=== PATIENT | female | born 1985 | race Asian ===

== ENCOUNTER 2017-11-14 15:40 | Inpatient (IN) | payer OTHER, SELFPAY ==
[~2017-11-14] VITALS: Ht 166 cm; Wt 73.9 kg
[~2017-11-14 15:40] MED LIST: LIDOCAINE HCL/PF 1% 10 ML AMPUL INJ ONE; LIDOCAINE PF 2%, 200 MG/10 ML AMPUL.LUER (EPIDURAL) INJ ONE
[2017-11-14] MEDS ORDERED: LR 1,000 ML IV ONE (16:33)
[2017-11-14] MEDS ORDERED: OXYTOCIN/0.9 % SODIUM CHLORIDE 1,000 ML IV SCH (16:33)
[2017-11-14] MEDS ORDERED: TERBUTALINE SULFATE 1 MG/ML VIAL SUBCUT ONE (16:45)
[2017-11-14 16:52] LABS: BASOPHILS # (AUTO) 0.1 K/uL (0.0-0.2); BASOPHILS % (AUTO) 0.8 % (0.0-2.0); EOSINOPHILS # (AUTO) 0.1 K/uL (0.0-0.4); HEMATOCRIT 40.8 % (36-48); HEMOGLOBIN 13.5 g/dL (12.0-16.0); LYMPHOCYTES # (AUTO) 1.4 K/uL (1.0-5.5); LYMPHOCYTES % (AUTO) 19.2 % (20.5-51.5); MEAN CORPUSCULAR HEMOGLOBIN 31 pg (27-31); MEAN CORPUSCULAR HGB CONC 33 % (32-36); MEAN CORPUSCULAR VOLUME 94 fL (79.0-98.0); MONOCYTES # (AUTO) 0.4 K/uL (0.0-1.0); MONOCYTES % (AUTO) 5.2 % (1.7-9.3); NEUTROPHILS # (AUTO) 5.3 K/uL (1.8-7.7); NEUTROPHILS % (AUTO) 73.8 % (40.0-70.0); PLATELET COUNT (AUTO) 138 K/uL (130-430); RED BLOOD CELL COUNT(AUTO) 4.36 MIL/uL (4.2-6.2); RED CELL DISTRIBUTION WIDTH 20.1 % (9.0-15.0); WHITE BLOOD COUNT (AUTO) 7.3 K/uL (4.8-10.8)
[2017-11-14] MEDS ORDERED: FENT2mCg/mL-ROPIVA0.2%/NS EPID 150 ML EP SCH (17:52)
[2017-11-14] MEDS ORDERED: fentaNYL CITRATE/PF 100 MCG/2 ML AMP ONE ×2 (17:52→22:39)
[2017-11-14] MEDS ORDERED: NALBUPHINE HCL 10 MG/ML AMP ONE (18:33)
[2017-11-14] MEDS ORDERED: NALBUPHINE HCL 10 MG/ML AMP IVP ONE (18:33)
[2017-11-14] MEDS: LR 1,000 ML IV SCH (18:35)
[2017-11-14 19:43] VITALS: BP_SYST 122
[2017-11-15] MEDS ORDERED: METHYLERGONOVINE MALEATE 0.2 MG/ML AMP ONE (00:05)
[2017-11-15] MEDS ORDERED: METHYLERGONOVINE MALEATE 0.2 MG/ML AMP IM ONE (00:05)
[2017-11-15] MEDS ORDERED: OXYTOCIN/0.9 % SODIUM CHLORIDE 1,000 ML IV ONE (03:58)
[2017-11-15] MEDS ORDERED: OXYTOCIN/0.9 % SODIUM CHLORIDE 1,000 ML IV SCH (03:58)
[2017-11-15] MEDS ORDERED: SENNOSIDES/DOCUSATE SODIUM 1 TAB TABLET(SENOKOT-S) PO PRN (04:00)
[2017-11-15] MEDS ORDERED: DERMOPLAST SPRAY TP PRN (04:00)
[2017-11-15] MEDS ORDERED: LANOLIN 7 GM OINT. TP PRN (04:00)
[2017-11-15] MEDS ORDERED: ANUSOL 1 EA SUPP.RECT (PREPARATION H) RC PRN (04:00)
[2017-11-15] MEDS ORDERED: GLYCERIN/WITCH HAZEL (TUCKS PADS) TP PRN (04:00)
[2017-11-15] MEDS ORDERED: HYDROCORTISONE 0.5%, 28.35 GM TOPICAL CREAM TP PRN (04:00)
[2017-11-15] MEDS ORDERED: METHYLERGONOVINE MALEATE 0.2 MG TABLET PO PRN (04:00)
[2017-11-15] MEDS ORDERED: DIPH-TET-PERTUS Vaccine 0.5 ML VIAL (ADACEL) I.M. PRN (04:00)
[2017-11-15] MEDS ORDERED: IBUPROFEN 600 MG TABLET ONE (04:16)
[2017-11-15] MEDS: IBUPROFEN 600 MG TABLET PO SCH ×3 (04:30→16:21)
[2017-11-15] MEDS: LR 1,000 ML IV SCH (04:33)
[2017-11-15] MEDS: DOCUSATE SODIUM 100 MG CAPSULE PO PRN ×2 (10:42→22:35)
[2017-11-15] MEDS ORDERED: TEMAZEPAM 15 MG CAPSULE PO PRN (21:00)
[2017-11-15] MEDS ORDERED: OXYCODONE/ACETAMINOPHEN 5-325 TABLET PO PRN ×2 (22:15)
[2017-11-16] MEDS: IBUPROFEN 600 MG TABLET PO SCH ×2 (00:05→06:17)
[2017-11-16 07:29] LABS: HEMATOCRIT 28.3 % (36-48); HEMOGLOBIN 9.7 g/dL (12.0-16.0)
== END 2017-11-16 12:50 | disposition home or self-care (01) | DRG 775 ==
LOC: SPU 15:40
PROVIDERS: ADMIT Obstetrics & Gynecology; ATTEND Obstetrics & Gynecology
PROC: 10E0XZZ Delivery of Products of Conception, External Approach (ICD-10-PCS; principal; 2017-11-14)
PROC: 10907ZC Drainage of Amniotic Fluid, Therapeutic from Products of Conception, Via Natural or Artificial Opening (ICD-10-PCS; 2017-11-14)
PROC: 3E0R3BZ Introduction of Anesthetic Agent into Spinal Canal, Percutaneous Approach (ICD-10-PCS; 2017-11-14)
PROC: 00HU33Z Insertion of Infusion Device into Spinal Canal, Percutaneous Approach (ICD-10-PCS; 2017-11-14)
DX: O80 Encounter for full-term uncomplicated delivery (principal); Z37.0 Single live birth; Z3A.39 39 weeks gestation of pregnancy
CPT/HCPCS: 36415; 85018-TC; 85025; 86886; 86900; 86901; J2001; J2210; J2300; J2590; J3010